=== PATIENT | male | born 2000 | race Caucasian/White ===

== ENCOUNTER 2024-09-19 07:25 | Emergency (ER) | payer MEDICAID ==
[~2024-09-19] VITALS: Ht 165.1 cm; Wt 66.2 kg
[2024-09-19 07:33] VITALS: BP 129/81; TEMP 98.2
[2024-09-19] MEDS ORDERED: DOXY100C2 PO (07:51)
[2024-09-19] MEDS ORDERED: CEFTRIAXONE 500 MG VIAL ONE (08:11)
[2024-09-19] MEDS ORDERED: LIDOCAINE /MPF 1% VIAL 5 ML VIAL ONE (08:11)
[2024-09-19] MEDS ORDERED: DOXYCYCLINE HYCLATE (100 MG) 100 MG TABLET ONE (08:12)
[2024-09-19] MEDS: DOXYCYCLINE HYCLATE (100 MG) 100 MG TABLET PO ONE (08:15)
[2024-09-19] MEDS: CEFTRIAXONE 500 MG VIAL IM ONE (08:26)
[2024-09-19 08:46] VITALS: O2SAT 98
== END 2024-09-19 08:46 | disposition home or self-care (01) ==
LOC: ER 07:35
DX: K62.89 Other specified diseases of anus and rectum (principal)
CPT/HCPCS: 99283; 96372; J0696; J3490